=== PATIENT | female | born 1960 | race Caucasian/White ===

== ENCOUNTER → 2021-12-27 | Outpatient (CLI) | payer OTHER ==
[~2021-12-27] MED LIST: GADOBENATE DIMEGLUMINE 1 ML IV ONE
[2021-12-27 11:22] LABS: CREATININE, SERUM 0.68 mg/dL (0.57-1.11)
== END ==
LOC: MRI 10:35
PROVIDERS: ATTEND Specialist
DX: R22.41 Localized swelling, mass and lump, right lower limb (principal)
CPT/HCPCS: 36415; 82565; 84520